=== PATIENT | female | born 1960 | race African-American/Black ===

== ENCOUNTER 2018-01-05 19:33 | Emergency (ER) | payer MEDICAID, OTHER ==
[~2018-01-05] VITALS: Ht 172.7 cm; Wt 118.8 kg
[2018-01-05] MEDS ORDERED: FUROSEMIDE 40MG TABLET PO ONE (22:00)
[2018-01-05] MEDS ORDERED: IBUPROFEN 600MG TABLET PO ONE (22:00)
[2018-01-05 23:38] VITALS: BP 147/72
== END 2018-01-05 23:42 | disposition home or self-care (01) ==
LOC: ER 20:55
DX: R60.0 Localized edema (principal); M79.604 Pain in right leg; I10 Essential (primary) hypertension; E11.9 Type 2 diabetes mellitus without complications; Z87.891 Personal history of nicotine dependence
CPT/HCPCS: 93971; 99284; Z7610